=== PATIENT | male | born 1970 | race Two or more races ===

== ENCOUNTER → 2025-07-21 | Outpatient (CLI) | payer OTHER ==
--- NOTE | 2025-07-21 10:05 | DVH ---
EXAM: CT CT AB PEL WO CON-NO ORAL OR IV HISTORY: ELEVATED PSA COMPARISON: None TECHNIQUE: Helical CT images of the abdomen and pelvis were performed without IV contrast. Sagittal a nd coronal reformatted images were obtained. This CT exam was performed using one or more of the foll owing dose reduction techniques: Automated exposure control, adjustment of the mA and/or kv according to patient size, or the use of iterative reconstruction techniques. Radiation Dose: Abdomen/Pelvis: CTDIvol 15.75 mGy, DLP 971.52 mGy*cm. FINDINGS: CT abdomen: The lung bases are clear. The heart is enlarged. The liver is borderline diffusely fatty density. The noncontrast spleen, gallbladder, pancreas, kidneys, and adrenal glands are unremarkable . No abdominal aortic aneurysm. CT pelvis: No abnormal bowel dilatation, free air, or free fluid. There is fecal retention in the col on. The prostate is mildly enlarged. The appendix and urinary bladder are unremarkable. There is raul re degenerative disc disease L5-S1 with significant neural foraminal stenosis bilaterally at that lev el. There is bilateral L5 spondylolysis with grade 1 anterolisthesis L5 on S1 measuring 3 mm AP. Ther e is mild osteoarthritis of the bilateral hips. No lytic or blastic lesions are identified throughout the visualized bony structures. IMPRESSION: 1. Cardiomegaly. 2. Fecal retention in the colon suggestive of constipation. 3. Mild prostatic enlargement. 4. Bilateral L5 spondylolysis with grade 1 anterolisthesis L5 on SAdvanced degenerative disc disease at L5-S1 causes significant neural foraminal stenosis bilaterally at that level. This would be better characterized with noncontrast MRI of the lumbar spine on an outpatient basis. 5. No evidence of bowel obstruction, acute appendicitis, or other acute process in the abdomen or pel vis.
== END | disposition home or self-care (01) ==
LOC: CT 14:35
DX: N40.0 Benign prostatic hyperplasia without lower urinary tract symptoms (principal); R97.20 Elevated prostate specific antigen [PSA]; I51.7 Cardiomegaly; R19.5 Other fecal abnormalities; M51.379 Other intervertebral disc degeneration, lumbosacral region without mention of lumbar back pain or lower extremity pain; M48.07 Spinal stenosis, lumbosacral region; M43.17 Spondylolisthesis, lumbosacral region; M47.816 Spondylosis without myelopathy or radiculopathy, lumbar region; M16.0 Bilateral primary osteoarthritis of hip
CPT/HCPCS: 74176